=== PATIENT | male | born 1970 | race Caucasian/White ===

== ENCOUNTER 2022-01-31 00:49 | Day surgery (SDC) | payer BC, SELFPAY ==
[2022-01-17 13:38] VITALS: BMI 26.5
--- NOTE | 2022-01-30 14:14 | PM.HPGS ---
History of Present Illness History of Present Illness Consent: Risks, benefits, and alternatives have been discussed and questions answered. Patient agrees to proceed with procedure. Chief complaint: neoplasm screening and hx of colon polyps Narrative: Brenton Koroma is a 51 year old male For for colon cancer screening. 5 years ago he had a polyp removed. Review of Systems Review of Systems: All systems reviewed & are unremarkable except as noted in HPI and below PMFSH Family History Family History Mother Hypertension Social History Social History Smoking status: Never smoker Second hand tobacco smoke exposure: No Alcohol intake: former Substance use: never Substance use type: does not use Lack of Transportation: No Lack of Food: Never True Current Housing: I Have Housing Concerned About Future Housing: No Difficulty Paying Gas/Electric Bills: No Difficulty Paying for Meds: No Currently Unemployed: No Education: High School Diploma/GED Difficulty w/ Childcare or Family Care: No Living arrangements: with family Spiritual care concerns: No Meds Home Medications and Allergies Home Medications Medication Instructions Recorded Confirmed Type No Home Medications 01/31/22 01/31/22 History Allergies Allergy/AdvReac Type Severity Reaction Status Date / Time No Known Allergies Allergy Verified 01/31/22 06:18 Exam Const: General: alert Orientation/consciousness: patient oriented x3 Resp: Auscultation: clear to auscultation bilaterally Cardio: Rhythm: regular rhythm GI: GI Palp: Yes Soft to palpation and No Tenderness to palpation present (GI) Neuro: General: patient oriented x3 Assessment and Plan Assessment and plan (1) Colon cancer screening: Code(s): Z12.11 - Encounter for screening for malignant neoplasm of colon Status: Acute Assessment and Plan: Colonoscopy with possible biopsy or polypectomy or cautery or injection of substances.
[2022-01-31 06:19] VITALS: BP 123/81; PULSE 73; RESP 18; TEMP 36.3; O2SAT 98
[2022-01-31] MEDS: LACTATED RINGERS 1,000 ML 150 ML IV CONT (06:32)
--- NOTE | 2022-01-31 07:09 | P.PNAN_ITS ---
Anes - Initial Pre Proc Eval Procedure: Operation Date: 01/31/22 07:30 Proposed Procedures p Screening Colonoscopy - Nick Bains MD Date/Time: 01/31/22 07:09 Surgeon: Nick Bains MD Pre Op Diagnosis: neoplasm screening and hx of colon polyps Patient Data Age: 51 Gender: M Height: 1.93 m Weight: 97.5 kg Last Vital Signs Temp 36.3 C L 01/31/22 06:19 Pulse 73 01/31/22 06:19 Resp 18 01/31/22 06:19 BP 123/81 01/31/22 06:19 Pulse Ox 98 01/31/22 06:19 O2 Del Method Room Air 01/31/22 06:19 Allergies Allergy/AdvReac Type Severity Reaction Status Date / Time No Known Allergies Allergy Verified 01/31/22 06:18 Home Medications Medication Instructions Recorded Confirmed Type No Home Medications 01/31/22 01/31/22 History Patient hx anesthesia problems: none Family hx anesthesia problems: none Results Review: All pre-operative results and documents have been reviewed as part of the pre-operative evaluation. [facility] Past Medical History Medical History (Updated 01/31/22 @ 07:11 by Tong Wong MD) ETOH abuse Fatty liver Hyperlipidemia Overweight (BMI 25.0-29.9) Family History Family History Mother Hypertension Social History Social History Smoking status: Never smoker Second hand tobacco smoke exposure: No Alcohol intake: former Substance use: never Substance use type: does not use Lack of Transportation: No Lack of Food: Never True Current Housing: I Have Housing Concerned About Future Housing: No Difficulty Paying Gas/Electric Bills: No Difficulty Paying for Meds: No Currently Unemployed: No Education: High School Diploma/GED Difficulty w/ Childcare or Family Care: No Living arrangements: with family Spiritual care concerns: No Anes - Eval Final PreProcedure Day of Procedure 01/31/22 07:09 Patient weight: overweight Heart: regular rate and rhythm Lungs: clear to auscultation and normal air movement Airway: Mallampati scale class II Neurological: alert and oriented Last oral intake: >/= 8 hours ASA classification: II Emergent: no Anesthetic plan: proceed Anesthesia type and monitoring: general GIVS Results Review: All pre-operative results and documents have been reviewed as part of the pre- operative evaluation. Informed Consent: The patient's anesthetic plan and its attendant risks and benefits were discussed with the patient/family/POA. Questions were solicited and answers provided to the satisfaction of the patient/family/POA.
[2022-01-31 07:39] VITALS: BP 105/72; PULSE 64; RESP 12; O2SAT 97
[2022-01-31 07:49] VITALS: BP 104/72; PULSE 62; RESP 15; O2SAT 96
[2022-01-31 07:59] VITALS: BP 119/85; PULSE 62; RESP 20; O2SAT 99
== END 2022-01-31 08:08 | disposition home or self-care (01) ==
PROVIDERS: PCP Internal Medicine; Visit Provider Internal Medicine Gastroenterology
PROC: 0DJD8ZZ Inspection of Lower Intestinal Tract, Via Natural or Artificial Opening Endoscopic (ICD-10-PCS; CPT 45378; principal; 2022-01-31 07:30)
DX: Z12.11 Encounter for screening for malignant neoplasm of colon (principal); K63.5 Polyp of colon; K76.0 Fatty (change of) liver, not elsewhere classified; E78.5 Hyperlipidemia, unspecified
CPT/HCPCS: 45380; 88305; J2704; J7120

== ENCOUNTER 2022-09-06 15:07 | Outpatient (CLI) | payer BC, SELFPAY ==
--- NOTE | ~2022-09-06 | US_ITS ---
Ultrasound of the neck CLINICAL HISTORY: Palpable mass right neck TECHNIQUE: Targeted sonographic imaging of the right neck was performed at the area of palpable angela rn in the submandibular region. FINDINGS: At the area of clinical concern, there is a 4.1 x 3.8 x 1.0 cm ovoid, circumscribed hypoech oic mass. Small foci of vascular flow present present within the mass on color imaging. IMPRESSION: 4.1 x 2.8 x 1.0 cm ovoid solid mass in the right submandibular region at the area of clinical concern . This is suspicious for lymphadenopathy or other neoplastic lesion. Contrast enhanced CT and/or pre and postcontrast MR recommended to further evaluate imaging characteristics and precise anatomic loca tion/involvement. Reviewed, dictated and finalized at location M. IMPRESSION: 4.1 x 2.8 x 1.0 cm ovoid solid mass in the right submandibular region at the ar ea of clinical concern. This is suspicious for lymphadenopathy or other neoplas tic lesion. Contrast enhanced CT and/or pre and postcontrast MR recommended to further evaluate imaging characteristics and precise anatomic location/involvem ent.
== END 2022-09-06 15:08 | disposition home or self-care (01) ==
PROVIDERS: PCP Internal Medicine; Visit Provider Physician Assistant
DX: R22.1 Localized swelling, mass and lump, neck (principal)
CPT/HCPCS: 76536

== ENCOUNTER 2022-09-26 08:28 | Outpatient (CLI) | payer BC, SELFPAY ==
--- NOTE | ~2022-09-26 | MR_ITS ---
EXAMINATION: MR orbits face neck wo/w con DATE: 09/26/2022 09:26 INDICATION: Localized swelling, mass and lump, neck. TECHNIQUE: Magnetic resonance imaging (MRI) of the neck was performed without and with 19 mL MultiHan ce intravenous contrast. COMPARISON: Ultrasound 09/06/2022 FINDINGS: There is a 2.9 x 1.6 cm high right internal jugular chain node. The major salivary glands a re normal. The pharynx and larynx are unremarkable. There is mild cervical spondylosis. IMPRESSION: 1. Enlarged high right internal jugular chain lymph node suspicious for metastatic squamous cell carc inoma or lymphoma. Ultrasound-guided core needle biopsy is recommended. Reviewed, dictated and finalized at location A. IMPRESSION: 1. Enlarged high right internal jugular chain lymph node suspicious for metasta tic squamous cell carcinoma or lymphoma. Ultrasound-guided core needle biopsy i s recommended.
== END 2022-09-26 08:29 | disposition home or self-care (01) ==
PROVIDERS: PCP Internal Medicine; Visit Provider Physician Assistant
DX: R22.1 Localized swelling, mass and lump, neck (principal)
CPT/HCPCS: 70543; A9577

== ENCOUNTER 2022-09-28 09:31 | Outpatient (CLI) | payer BC, SELFPAY ==
--- NOTE | ~2022-09-28 | XR_ITS ---
Clinical Indication: Neck mass PA and lateral views of the chest: Comparison: None Findings: The lungs are clear, without evidence of focal consolidation or pleural effusion. Cardiome diastinal silhouette is within normal limits. Bones and soft tissues are unremarkable. Impression: Normal chest. Reviewed, dictated and finalized at location . Impression: Normal chest.
== END 2022-09-28 09:32 | disposition home or self-care (01) ==
PROVIDERS: PCP Internal Medicine; Visit Provider Internal Medicine
DX: R05.9 Cough, unspecified (principal)
CPT/HCPCS: 71046

== ENCOUNTER 2022-10-11 10:06 | Outpatient (CLI) | payer BC, SELFPAY ==
--- NOTE | ~2022-10-11 | US_ITS ---
EXAMINATION: US biopsy lymph node DATE: 10/11/2022 11:06 INDICATION: Right submandibular mass TECHNIQUE: The procedure including the risks and benefits was discussed with the patient. Risks discu ssed included bleeding and infection. The patient understood the risks and agreed to proceed. The sk in overlying the right submandibular region was prepped and draped in usual sterile fashion. Anesthe tic was administered with 1% lidocaine subcutaneously. An 18 gauge core biopsy needle was advanced u nder continuous ultrasound observation to the lesion of interest. 8 core biopsy specimens were obtai ivis, 3 placed in formalin and 5 in RPMI media. The needle was removed and the entry site was cleaned and dressed. Post procedure ultrasound demonstrated no hemorrhage. FINDINGS: Ultrasound images demonstrate biopsy needle advanced into a 3.7 x 3.2 x 1.4 cm right subman dibular lymph node. IMPRESSION: 1. Successful Ultrasound-guided biopsy of a 3.7 cm right submandibular lymph node. Reviewed, dictated and finalized at location A. IMPRESSION: 1. Successful Ultrasound-guided biopsy of a 3.7 cm right submandibular lymph no de.
== END 2022-10-11 10:07 | disposition home or self-care (01) ==
LOC: ANHIMG 10:07
PROVIDERS: PCP Internal Medicine; Visit Provider Physician Assistant
DX: C08.0 Malignant neoplasm of submandibular gland (principal)
CPT/HCPCS: 38505; 76942; 88305; 88342